=== PATIENT | male | born 1955 | race Caucasian/White ===

== ENCOUNTER 2018-12-12 11:33 | Emergency (ER) | payer MEDICAID ==
[~2018-12-12] VITALS: Ht 180.3 cm; Wt 80.0 kg
[~2018-12-12 11:33] MED LIST: ALBU8.5H8 IH; HYDR-4383 PO; NO HOME MEDS
[2018-12-12 11:43] VITALS: BP 135/90
[2018-12-12] MEDS ORDERED: SULF1TAB49 PO (13:08)
[2018-12-12] MEDS ORDERED: ketorolac trometh inj. 60 MG/2 ML VIAL IM ONE (13:40)
== END 2018-12-12 14:02 | disposition home or self-care (01) ==
LOC: ER 11:33
DX: L73.8 Other specified follicular disorders (principal); J44.9 Chronic obstructive pulmonary disease, unspecified; G89.29 Other chronic pain; Z86.14 Personal history of Methicillin resistant Staphylococcus aureus infection; Z88.1 Allergy status to other antibiotic agents; Z98.890 Other specified postprocedural states
CPT/HCPCS: 96372; 99283; J1885

== ENCOUNTER 2019-01-24 14:05 | Emergency (ER) | payer MEDICAID ==
[~2019-01-24] VITALS: Ht 180.3 cm; Wt 68.2 kg
[2019-01-24 14:23] VITALS: BP 117/71
[2019-01-24] MEDS ORDERED: mupirocin 2% ointment 22GM TP STA (15:07)
[2019-01-24] MEDS ORDERED: ibuprofen 200mg tablet PO ONE (15:10)
[2019-01-24] MEDS ORDERED: DOXYCYCLINE 100MG CAPSULE PO STA (15:13)
[2019-01-24] MEDS ORDERED: MUPI22OI30 TOP (15:15)
[2019-01-24] MEDS ORDERED: cephalexin 250mg capsule PO ONE (15:15)
[2019-01-24] MEDS ORDERED: DOXY100C2 PO (15:15)
[2019-01-24] MEDS ORDERED: CEPH500C5 PO (15:15)
--- NOTE | 2019-01-24 15:41 | NUR ---
WOUNDS NOTED ON LEGS, BUTTOCKS, ABD. STATES HX STAPH INFECTION. MEDS GIVEN AND FULL INSTRUCTIONS GIVEN TO PATIENT ABOUT IMPORTANCE OF ANTIBIOTICS AND SKIN CARE.
== END 2019-01-24 15:45 | disposition home or self-care (01) ==
LOC: ER 14:05
DX: R21 Rash and other nonspecific skin eruption (principal); L98.9 Disorder of the skin and subcutaneous tissue, unspecified; M54.5 Low back pain; K02.9 Dental caries, unspecified; J44.9 Chronic obstructive pulmonary disease, unspecified; G89.29 Other chronic pain; I25.10 Atherosclerotic heart disease of native coronary artery without angina pectoris; Z88.1 Allergy status to other antibiotic agents; Z79.1 Long term (current) use of non-steroidal anti-inflammatories (NSAID); Z79.899 Other long term (current) drug therapy; Z86.14 Personal history of Methicillin resistant Staphylococcus aureus infection; Z87.19 Personal history of other diseases of the digestive system; Z98.890 Other specified postprocedural states
CPT/HCPCS: 99284

== ENCOUNTER 2019-01-31 05:12 | Emergency (ER) | payer MEDICAID ==
[~2019-01-31] VITALS: Ht 180.3 cm; Wt 68.2 kg
[~2019-01-31 05:12] MED LIST changes: +CEPH500C5 PO; +DOXY100C2 PO; +MUPI22OI30 TOP
[2019-01-31] MEDS ORDERED: SULF1TAB49 PO (05:17)
[2019-01-31 05:24] VITALS: BP 134/63
--- NOTE | 2019-01-31 05:26 | NUR ---
TOMA JEROME CALLED FOR RIDE FOR PT BACK HOME
== END 2019-01-31 05:27 | disposition home or self-care (01) ==
LOC: ER 05:13
DX: L03.115 Cellulitis of right lower limb (principal); J44.9 Chronic obstructive pulmonary disease, unspecified; G89.29 Other chronic pain; Z98.890 Other specified postprocedural states; Z86.14 Personal history of Methicillin resistant Staphylococcus aureus infection; Z88.1 Allergy status to other antibiotic agents; Z79.2 Long term (current) use of antibiotics; Z79.899 Other long term (current) drug therapy
CPT/HCPCS: 99283

== ENCOUNTER 2019-02-11 13:46 | Emergency (ER) | payer MEDICAID ==
[~2019-02-11] VITALS: Ht 180.3 cm; Wt 68.0 kg
[~2019-02-11 13:46] MED LIST changes: -CEPH500C5 PO; -DOXY100C2 PO; -MUPI22OI30 TOP; +SULF1TAB49 PO
[2019-02-11 14:12] VITALS: BP 145/95
[2019-02-11] MEDS ORDERED: SULF1TAB49 PO (15:12)
== END 2019-02-11 15:17 | disposition home or self-care (01) ==
LOC: ER 13:47
DX: L02.416 Cutaneous abscess of left lower limb (principal); L02.415 Cutaneous abscess of right lower limb; J44.9 Chronic obstructive pulmonary disease, unspecified; G89.29 Other chronic pain; Z86.14 Personal history of Methicillin resistant Staphylococcus aureus infection; Z88.1 Allergy status to other antibiotic agents
CPT/HCPCS: 99283

== ENCOUNTER 2021-01-24 11:00 | Emergency (ER) | payer MEDICARE, MEDICAID ==
[~2021-01-24] VITALS: Ht 180.3 cm; Wt 72.7 kg
[~2021-01-24 11:00] MED LIST changes: +ALBU8.5H17 IH; -ALBU8.5H8 IH; -SULF1TAB49 PO
[2021-01-24 11:01] VITALS: BP 151/101
[2021-01-24] MEDS ORDERED: ondansetron/PF 4mg/2ml inj IV ONE (11:10)
[2021-01-24] MEDS ORDERED: normal saline 1000ML IV soln IVB ONE (11:10)
[2021-01-24 11:30] LABS: BASOPHILS % (AUTO) 0.4 % (0-1); EOSINOPHILS # (AUTO) 0.1 X10'3 (0-0.9); EOSINOPHILS % (AUTO) 0.7 % (0-6); HEMATOCRIT 49.6 % (42.0-52.0); MEAN CORPUSCULAR HEMOGLOBIN 31.9 PG (27.0-31.0); MEAN CORPUSCULAR HGB CONC 34.2 g/dL (33.0-36.5); MEAN CORPUSCULAR VOLUME 93.3 FL (78-98); MEAN PLATELET VOLUME 7.5 FL (7.4-10.4); MONOCYTES # (AUTO) 0.7 X10'3 (0-0.9); MONOCYTES % (AUTO) 7.6 % (2-12); NEUTROPHILS # (AUTO) 7.8 X10'3 (1.8-7.7); NEUTROPHILS % (AUTO) 81.3 % (42-75); PLATELET COUNT 282 X10'3 (140-440); RED BLOOD COUNT 5.32 X10'6 (4.70-6.10); WHITE BLOOD COUNT 9.6 X10'3 (4.5-11.0)
[2021-01-24 11:36] LABS: CLARITY,URINE CLOUDY (Clear); COLOR,URINE YELLOW (Yellow); GLUCOSE, URINE NEGATIVE (Neg); KETONES,URINE 15 mg/dl (Neg); LEUKOCYTE ESTERASE ,URINE NEGATIVE (Neg); NITRITES, URINE NEGATIVE (Neg); OCCULT BLOOD,URINE NEGATIVE (Neg); PROTEIN,URINE NEGATIVE (Neg); UROBILINOGEN,URINE 0.2 E.U/dL (0.2-1.0)
[2021-01-24 11:42] LABS: UA COLLECTION TYPE CLN CATCH MIDSTREAM
[2021-01-24 11:43] LABS: BACTERIA,URINE 1+ /HPF (Neg); MUCUS STRANDS MANY /LPF (Neg); SQUAMOUS EPITHELIAL CELL,UR FEW /LPF (FEW)
[2021-01-24 11:44] LABS: RBC,URINE 0-2 /HPF (0-2)
[2021-01-24 11:45] LABS: HYALINE CASTS 0-3 /LPF (NEGATIVE)
[2021-01-24 11:53] LABS: ALANINE AMINOTRANSFERASE 43 U/L (12-78); ALBUMIN 3.9 G/DL (3.4-5.0); ALBUMIN/GLOBULIN RATIO 0.8 (1.1-1.5); ALKALINE PHOSPHATASE 81 IU/L (46-116); ANION GAP 8 (8-16); ASPARTATE AMINO TRANSFERASE 24 U/L (10-37); BILIRUBIN,TOTAL 0.5 MG/DL (0.1-1.0); BLOOD UREA NITROGEN 19 MG/DL (7-18); CALCIUM 9.7 MG/DL (8.5-10.1); CHLORIDE 103 MMOL/L (99-107); GLUCOSE 120 MG/DL (70-104); POTASSIUM 4.2 MMOL/L (3.5-5.1); SODIUM 139 MMOL/L (135-145); TOTAL CARBON DIOXIDE 28.1 MMOL/L (24-32); TOTAL PROTEIN 8.6 G/DL (6.4-8.2); eGFR 75 ML/MIN
[2021-01-24] MEDS ORDERED: CEPH250T PO (13:04)
[2021-01-24] MEDS ORDERED: ONDA4TAB6 PO (13:04)
== END 2021-01-24 13:27 | disposition home or self-care (01) ==
LOC: ER 11:00
DX: N39.0 Urinary tract infection, site not specified (principal); R53.1 Weakness; R11.2 Nausea with vomiting, unspecified; R30.0 Dysuria; R30.9 Painful micturition, unspecified; J44.9 Chronic obstructive pulmonary disease, unspecified; G89.29 Other chronic pain; Z86.14 Personal history of Methicillin resistant Staphylococcus aureus infection; Z98.890 Other specified postprocedural states; Z88.1 Allergy status to other antibiotic agents; Z79.2 Long term (current) use of antibiotics; Z79.899 Other long term (current) drug therapy
CPT/HCPCS: 36415; 80053; 81001; 85025; 87088; 93005; 99284

== ENCOUNTER 2021-09-26 02:01 | Emergency (ER) | payer MEDICARE, MEDICAID ==
[~2021-09-26] VITALS: Ht 180.3 cm; Wt 72.7 kg
[~2021-09-26 02:01] MED LIST changes: +ONDA4TAB6 PO
[2021-09-26 02:07] VITALS: BP 102/73
== END 2021-09-26 06:13 | disposition left against medical advice (07) ==
LOC: ER 02:02
DX: N23 Unspecified renal colic (principal); Z53.21 Procedure and treatment not carried out due to patient leaving prior to being seen by health care provider

== ENCOUNTER 2021-12-13 02:50 | Emergency (ER) | payer MEDICARE, MEDICAID ==
[~2021-12-13] VITALS: Ht 180.3 cm; Wt 72.7 kg
[2021-12-13 03:06] VITALS: BP 152/91
== END 2021-12-13 07:13 | disposition left against medical advice (07) ==
LOC: ER 02:51
DX: R10.9 Unspecified abdominal pain (principal); Z53.21 Procedure and treatment not carried out due to patient leaving prior to being seen by health care provider

== ENCOUNTER 2022-05-09 11:03 | Emergency (ER) | payer MEDICARE, MEDICAID ==
[~2022-05-09] VITALS: Ht 180.3 cm; Wt 77.0 kg
[2022-05-09 11:28] VITALS: BP 102/70
== END 2022-05-09 20:08 | disposition left against medical advice (07) ==
LOC: ER 11:03
DX: R05.9 Cough, unspecified (principal); Z53.21 Procedure and treatment not carried out due to patient leaving prior to being seen by health care provider
CPT/HCPCS: 99281